=== PATIENT | male | born 1965 | race Caucasian/White ===

== ENCOUNTER 2016-03-15 14:26 | Observation (INO) | payer BC ==
[~2016-03-15] VITALS: Ht 182.9 cm; Wt 136.1 kg
[2016-03-15] MEDS ORDERED: Lidocaine 1% 10mg/ml/Epi 0.005mg/ml 30ml vial INJ ONE (14:43)
[2016-03-15] MEDS ORDERED: Hydrogen Peroxide 120ml Bottle TOPIC ONE (15:01)
--- NOTE | 2016-03-15 15:08 | Emergency Room Report ---
History of Present Illness General Chief Complaint: General Complaint Source: Patient Present Illness HPI 50 YO M with known "poor circulation" presents with ruptured/bleeding varicose vein on lower right extremity. Patient endorses "when I was in shower I thought I was peeing because it was coming out so fast." Patient couldnt control bleeding, called EMS. Denies being on AC, ASA. Never had rupture before. Known varicose veins, sees Night Filler "to treat them for me". Allergies: Uncoded Allergies: CAT (Allergy, Unknown, 03/15/16) DOG (Allergy, Unknown, 03/15/16) Patient History Past Medical History: other - PVD Past Surgical History: none Pertinent Family History: none Social History: Denies: alcohol use, drug use, smoking Immunizations: UTD Reviewed Nursing Documentation: PMH: Agreed, PSxH: Agreed Nursing Documentation-PMH Past Medical History: No History, Except For Hx Cardiac Problems: Yes - varicose vein, celluitis Hx Hypertension: Yes Review of Systems All Other Systems: negative except mentioned in HPI Physical Exam Vital Signs Date Time Temp Pulse Resp B/P Pulse Ox O2 Delivery O2 Flow Rate FiO2 03/15/16 14:52 97.2 88 19 116/48 94 Room Air Sp02 EP Interpretation: reviewed, normal General Appearance: normal inspection, well appearing, no apparent distress, alert, GCS 15, non-toxic Head: normocephalic, atraumatic Eyes: bilateral eye EOMI, bilateral eye PERRL Procedures Laceration/Wound Repair Laceration/Wound Repair : Consent: Emergent Wound Location: lower extremity Wound's Depth, Shape: superficial Wound Explored: clean Betadine Prep?: Yes Anesthesia: Lidocaine w/ Epi Wound Repaired With: sutures Suture Size/Type: nylon, other - 2.0 Number of Sutures: 1 Layer Closure?: No Sterile Dressing Applied?: Yes Splint Applied?: No Sling Applied?: No Patient Tolerated: Well Complications: None Progress Rapidly high pressure spurting of varicose vein to front lower right extremity saeed area. High pressure vessel spurting blood on opposing wall Significant direct pressure applied Lidocaine with epi injected into vessel and a figure 8 stitch with 2.0 nylon was placed around vessel Bleeding controlled Abd pads placed over surgicel and covered with pressure dressing Medical Decision Making Diagnostic Impression: Primary Impression: Asymptomatic ruptured varicose vein of right lower extremity ER Course 50 YO M with now controlled ?traumatic rupture of varicose vein of right lower extremity (see procedure note) VSS. Afebrile PLAN CBC stable. No leuks or metabolic abnormality. INR 1.[address] Hamilton for observation and I recommended [facility] Surgery consult to him EKG Diagnostic Results Rate: normal, other - sinus arrythmia Rhythm: NSR ST Segments: no acute changes ASA given to the pt in ED: No Rhythm Strip Diag. Results EP Interpretation: yes Rate: 74 Rhythm: NSR, no PVC's, no ectopy Chest X-Ray Diagnostic Results EP Interpretation: Yes Findings: no consolidation, no effusion, no pneumothorax, no acute cardiopulmonary disease Number of Views: 1 Last Vital Signs Date Time Temp Pulse Resp B/P Pulse Ox O2 Delivery O2 Flow Rate FiO2 03/15/16 14:52 97.2 88 19 116/48 94 Room Air Status: improved Disposition: ADMITTED INPATIENT Condition: Serious MARTIN PAULINO M.D. Mar 15, 2016 15:08
[2016-03-15 15:10] VITALS: BP 116/48
[2016-03-15 16:09] LABS: INR 1.2 (0.9-1.1); PROTHROMBIN TIME 11.8 SEC (9.30-11.50)
[2016-03-15 16:11] LABS: BASOPHILS % (AUTO) 1.2 % (0.0-2.0); EOSINOPHILS % (AUTO) 2.2 % (0.0-3.0); LYMPHOCYTES % (AUTO) 14.3 % (20.0-45.0); MEAN CORPUSCULAR HGB CONC 32.8 G/DL (32.0-36.0); MEAN CORPUSCULAR VOLUME 88 FL (80-99); MEAN PLATELET VOLUME 6.8 FL (6.5-10.1); MONOCYTES % (AUTO) 9.7 % (1.0-10.0); NEUTROPHILS % (AUTO) 72.7 % (45.0-75.0); PLATELET COUNT 223 K/UL (150-450); RED BLOOD COUNT 5.26 M/UL (4.70-6.10); WHITE BLOOD COUNT 7.3 K/UL (4.8-10.8)
[2016-03-15 16:36] VITALS: BP 117/52
[2016-03-15] MEDS ORDERED: Docusate 250mg cap ORAL PRN (18:45)
[2016-03-15 19:12] LABS: ANION GAP 15 (5-15); CALCIUM 8.8 mg/dL (8.6-10.2); CARBON DIOXIDE 25 mEQ/L (20-30); CHLORIDE 101 mEQ/L (98-107); CREATININE 0.8 mg/dL (0.7-1.2); GLOMERULAR FILTRATION RATE > 60 mL/min (>60); HEMOLYSIS 28; MAGNESIUM 1.9 mg/dL (1.7-2.5); POTASSIUM 4.2 mEQ/L (3.4-4.9); SODIUM 141 mEQ/L (135-145)
--- NOTE | 2016-03-15 19:33 | History and Physical ---
History of Present Illness General Date patient seen: Mar 15, 2016 Time patient seen: 19:30 Reason for Hospitalization: General Complaint Present Illness HPI 50 YO M with known "poor circulation" presents with ruptured/bleeding on lower right extremity. Patient endorses "when I was in shower I thought I was peeing because it was coming out so fast." Blood was spurting out. Patient couldn't control bleeding, called EMS. Denies being on AC, ASA. Never had rupture before. 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 +LLE lymphedema Allergies: Uncoded Allergies: CAT (Allergy, Unknown, 03/15/16) DOG (Allergy, Unknown, 03/15/16) Patient History Healthcare decision maker Resuscitation status Full Code Advanced Directive on File Past Medical/Surgical History Past Medical/Surgical History: (1) Lymphedema of extremity (2) Varicose vein of leg Family History Family History: Patient reports no known family medical history. Social History Social History: (1) No significant social history Review of Systems All Other Systems: negative except mentioned in HPI Physical Exam General Appearance: no apparent distress, alert HEENT: normocephalic, atraumatic, anicteric, mucous membranes moist, PERRL, EOMI, pharynx normal, no JVD Neck: non-tender, supple Respiratory/Chest: lungs clear, normal breath sounds, no respiratory distress, no accessory muscle use Cardiovascular/Chest: normal peripheral pulses, normal rate, regular rhythm Abdomen: normal bowel sounds, non tender, soft, no mass Extremities: non-tender, normal inspection, severe edema Skin Exam: warm/dry 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, no motor/sensory deficits, alert Musculoskeletal: normal muscle bulk Last 24 Hour Vital Signs Date Time Temp Pulse Resp B/P Pulse Ox O2 Delivery O2 Flow Rate FiO2 03/15/16 16:36 97.3 87 15 117/52 95 Room Air 03/15/16 15:10 97.2 84 19 116/48 94 Room Air 03/15/16 14:52 97.2 88 19 116/48 94 Room Air Laboratory Tests Test 03/15/16 15:32 03/15/16 18:38 White Blood Count 7.3 K/UL (4.8-10.8) Red Blood Count 5.26 M/UL (4.70-6.10) Hemoglobin 15.3 G/DL (14.2-18.0) Hematocrit 46.5 % (42.0-52.0) Mean Corpuscular Volume 88 FL (80-99) Mean Corpuscular Hemoglobin 29.0 PG (27.0-31.0) Mean Corpuscular Hemoglobin Concent 32.8 G/DL (32.0-36.0) Red Cell Distribution Width 13.0 % (11.6-14.8) Platelet Count 223 K/UL (150-450) Mean Platelet Volume 6.8 FL (6.5-10.1) Neutrophils (%) (Auto) 72.7 % (45.0-75.0) Lymphocytes (%) (Auto) 14.3 % (20.0-45.0) L Monocytes (%) (Auto) 9.7 % (1.0-10.0) Eosinophils (%) (Auto) 2.2 % (0.0-3.0) Basophils (%) (Auto) 1.2 % (0.0-2.0) Prothrombin Time 11.8 SEC (9.30-11.50) H Prothromb Time International Ratio 1.2 (0.9-1.1) H Activated Partial Thromboplast Time 25 SEC (23-33) Creatine Kinase MB 4.1 ng/mL (< 6.7) Sodium Level 141 mEQ/L (135-145) Potassium Level 4.2 mEQ/L (3.4-4.9) Chloride Level 101 mEQ/L (98-107) Carbon Dioxide Level 25 mEQ/L (20-30) Anion Gap 15 (5-15) Blood Urea Nitrogen 13 mg/dL (7-23) Creatinine 0.8 mg/dL (0.7-1.2) Estimat Glomerular Filtration Rate > 60 mL/min (>60) Glucose Level 102 mg/dL (74-106) Calcium Level 8.8 mg/dL (8.6-10.2) Magnesium Level 1.9 mg/dL (1.7-2.5) Height (Feet): 6 Height (Inches): 0.00 Weight (Pounds): 300 Medications Current Medications Medications (Trade) Dose Ordered Sig/Brooke Route PRN Reason Start Time Stop Time Status Last Admin Dose Admin Cephalexin (Keflex) 500 mg Q12HR ORAL 03/15/16 21:00 03/22/16 20:59 Docusate Sodium (Colace) 250 mg Q8H PRN ORAL Constipation 03/15/16 18:45 04/14/16 18:44 Gabapentin (Neurontin) 300 mg QHS ORAL 03/15/16 21:00 04/14/16 20:59 Influenza Virus Vaccine (Flu Vaccine) 0.5 ml ONCE ONCE IM 03/16/16 08:00 03/16/16 08:01 UNV Lactobacillus Acidophilus (Culturelle) 1 tab DAILY ORAL 03/16/16 09:00 04/15/16 08:59 Pneumococcal Polyvalent Vaccine (Pneumovax) 0.5 ml ONCE ONCE IM 03/16/16 08:00 03/16/16 08:01 UNV Sertraline HCl (Zoloft) 75 mg DAILY ORAL 03/16/16 09:00 04/15/16 08:59 Assessment/Plan Problem List: (1) Asymptomatic ruptured varicose vein of right lower extremity ICD Codes: I83.91 - Asymptomatic varicose veins of right lower extremity SNOMED: 525295447, 48995146, 719395027 (2) Varicose vein of leg ICD Codes: I83.90 - Asymptomatic varicose veins of unspecified lower extremity SNOMED: 70189873 (3) Lymphedema of extremity ICD Codes: I89.0 - Lymphedema, not elsewhere classified SNOMED: 297141645 Status: progressing Assessment/Plan ctm cbc s/p suturing in ED jenna compression wrap to ankle c/s Vasc surgery Barbi Deng M.D. Mar 15, 2016 19:33
[2016-03-15] MEDS ORDERED: FUROSEMIDE10 MG/1 M2 PO (19:37)
[2016-03-15] MEDS ORDERED: SAW PALMETTO450 MG PO (19:38)
[2016-03-15] MEDS ORDERED: DOCUSATE SODIU100 MG ORAL (19:38)
[2016-03-15] MEDS ORDERED: MAGNESIUM27 MG PO (19:38)
[2016-03-15] MEDS ORDERED: POTASSIUM CITR (19:38)
[2016-03-15] MEDS ORDERED: PROBIOTIC1 EAC5 PO (19:38)
[2016-03-15] MEDS ORDERED: RED YEAST RICE600 MG PO (19:38)
[2016-03-15] MEDS ORDERED: GABAPENTIN100 MG ORAL (19:38)
[2016-03-15] MEDS ORDERED: ZOLOFT25 MG ORAL (19:38)
[2016-03-15 20:00] VITALS: BP 118/73
[2016-03-15] MEDS: Cephalexin 500mg cap ORAL SCH (21:18)
[2016-03-16] VITALS: BP 125/64
[2016-03-16 04:00] VITALS: BP 125/72
[2016-03-16 07:21] LABS: BASOPHILS % (AUTO) 0.6 % (0.0-2.0); EOSINOPHILS % (AUTO) 1.8 % (0.0-3.0); LYMPHOCYTES % (AUTO) 18.9 % (20.0-45.0); MEAN CORPUSCULAR HEMOGLOBIN 29.4 PG (27.0-31.0); MEAN CORPUSCULAR HGB CONC 33.4 G/DL (32.0-36.0); MEAN CORPUSCULAR VOLUME 88 FL (80-99); MEAN PLATELET VOLUME 6.6 FL (6.5-10.1); MONOCYTES % (AUTO) 10.2 % (1.0-10.0); NEUTROPHILS % (AUTO) 68.5 % (45.0-75.0); PLATELET COUNT 232 K/UL (150-450); RED BLOOD COUNT 4.74 M/UL (4.70-6.10); RED CELL DISTRIBUTION WIDTH 13.2 % (11.6-14.8); WHITE BLOOD COUNT 9.2 K/UL (4.8-10.8)
[2016-03-16 07:43] LABS: ANION GAP 8 (5-15); CALCIUM 9.1 mg/dL (8.6-10.2); CARBON DIOXIDE 32 mEQ/L (20-30); CHLORIDE 102 mEQ/L (98-107); CREATININE 0.8 mg/dL (0.7-1.2); GLOMERULAR FILTRATION RATE > 60 mL/min (>60); HEMOLYSIS 4; SODIUM 142 mEQ/L (135-145)
[2016-03-16 08:00] VITALS: BP 129/71
--- NOTE | 2016-03-16 08:10 | Wound Care Consultation ---
Wound Assessment Wound Assessment #1: Wound Number: #1 Wound Present on Admission: Yes New Wound: No Status Change of Wound: No Wound Location Body Site Modif: left, lower Wound Location Body Site: leg Wound Type: other - lymphedema noted with hemosiderin staining. Wound Drainage Amount: None Wound Drainage Odor: None/Absent Tissue Surrounding Wound: Intact Wound General Appearance: Open to air Wound Assessment #2: Wound Number: #2 Wound Present on Admission: Yes New Wound: No Status Change of Wound: No Wound Location Body Site Modif: left Wound Location Body Site: heel Wound Type: other - dryness Wound Drainage Amount: None Wound Drainage Odor: None/Absent Tissue Surrounding Wound: dry Wound General Appearance: Open to air Wound Assessment #3: Wound Present on Admission: Yes New Wound: No Status Change of Wound: No Wound Location Body Site Modif: right Wound Location Body Site: heel Wound Type: other - dryness Wound Drainage Amount: None Wound Drainage Odor: None/Absent Tissue Surrounding Wound: dry Wound General Appearance: Open to air Wound Comment #1 Left lower extremity lymphedema. #2 Right heel dry skin. #3 Left heel dry skin. #4 S/P surgical site to right lower extremity r/t bleeding from varicose vein. Recommendation. -FOLLOW UP WITH MD REGARDING ORDERS FOR SURGICAL SITE. -Elevate left lower extremity. -Keep clean and dry. -Apply A&D oint to both heels for dry skin. -Turn and reposition. -Float heels. -Assess and follow up with MD for any changes of condition. upon assessment noted skin intact to left leg lymphedema and noted both heels with thick dry skin. left leg lymphedema folds assess no open wounds present to site ,also folds were cleansed and pat dried, tolerated well. both heels also cleanse and applied A&D to heels. Right leg surgical site dressing remains intact as ordered. notified assigned nurse to follow up with MD regarding further orders to right leg. RED TORRES Mar 16, 2016 08:10
[2016-03-16] MEDS ORDERED: Influenza Virus Vaccine 0.5ml IM ONE (08:30)
[2016-03-16] MEDS ORDERED: Pneumococcal Vaccine 25mcg/0.5ml IM ONE (08:30)
[2016-03-16] MEDS: Cephalexin 500mg cap ORAL SCH (08:41)
[2016-03-16] MEDS ORDERED: Sertraline 50mg tab ORAL SCH (09:00)
[2016-03-16] MEDS ORDERED: Lactobacillus-GG tablet ORAL SCH (09:00)
--- NOTE | 2016-03-16 09:43 | Diagnostic Imaging Report ---
Indication: Chest pain Technique: One view of the chest Comparison: none Findings: Body habitus somewhat limits evaluation. Lungs and pleural spaces are clear. Heart is somewhat enlarged. Impression: Cardiomegaly. No acute process
[2016-03-16 12:00] VITALS: BP 120/73
--- NOTE | 2016-03-16 14:18 | Discharge Summary ---
Discharge Summary Hospital Course Date of Admission Mar 15, 2016 at 15:53 Date of Discharge 03/16/16 Admitting Diagnosis bleeding varicose vein ELLIS Siegel is a 50 year old male who was admitted on Mar 15, 2016 at 15:53 for Bleeding Varicose Veins Hospital Course pt admitted to med surg monitored cbc; Hg 15-->14 s/p suturing in ED to lower R ant saeed; no further bleeding jenna compression wrap to ankle c/s Vasc surgery; o/p management Keflex wound care for LLE lymphedema Discharge Medications Continued Medications: Docusate Sodium* (Docusate Sodium*) 100 Mg Capsule Unknown Dose ORAL THREE TIMES A DAY, CAP Furosemide (Furosemide) 10 Mg/1 Ml Solution Unknown Dose PO Lactobacillus Combo No.11 (Probiotic) 1 Each Cap.sprink Unknown Dose PO, CAP Magnesium Amino Acid Chelate (Magnesium) 27 Mg Tablet Unknown Dose PO, TAB Potassium Citrate Monohydrate (Potassium Citrate) 500 Gm Powder Unknown Dose, GM Sertraline Hcl* (Zoloft*) 25 Mg Tablet 75 MG ORAL DAILY, TAB Discontinued Medications: Red Yeast Rice (Red Yeast Rice) 600 Mg Capsule Unknown Dose PO, CAP Saw [place] Fruit (Saw [place]) 450 Mg Capsule Unknown Dose PO, CAP Discharge Condition Upon Discharge: stable Discharge Disposition Patient was discharged to Home (01) Discharge Diagnoses: (1) Bleeding from varicose vein (2) Lymphedema of extremity (3) Asymptomatic ruptured varicose vein of right lower extremity Barbi Pratt M.D. Mar 16, 2016 14:18
--- NOTE | 2016-03-20 19:19 | Cardiology Report ---
APPROVED REPORT EKG Measurement Heart [id number] Normal sinus rhythm with sinus arrhythmia Left axis deviation Inferior infarct, age undetermined Abnormal ECG
== END 2016-03-16 14:30 | disposition home or self-care (01) ==
LOC: EDBD 14:26 → EMR 15:39 → INTOOBSV 15:53 → 3E 15:53 → EDBEDREQ 16:38 → 3E 18:14
DX: I83.891 Varicose veins of right lower extremity with other complications (principal); I89.0 Lymphedema, not elsewhere classified; I73.9 Peripheral vascular disease, unspecified; I10 Essential (primary) hypertension; J30.81 Allergic rhinitis due to animal (cat) (dog) hair and dander; Z23 Encounter for immunization
CPT/HCPCS: 35226; 36415; 71010; 80048; 82553; 83735; 85025; 85610; 85730; 86850; 86900; 86901; 90732; 93005; 99285; G0008; G0009; G0378; Q2035; Q2036